=== PATIENT | male | born 1990 | race American Indian/Alaskan Native ===

== ENCOUNTER 2017-04-02 20:17 | Emergency (ER) | payer OTHER ==
--- NOTE | 2017-04-02 23:37 | XRay Report ---
FINAL REPORT PROCEDURE: XR SHOULDER 2+V LT TECHNIQUE: Left shoulder radiographs including AP views in internal and external rotation and abduction. CPT 18145 HISTORY: LEFT SHOULDER pain COMPARISON: No prior studies are available for comparison. FINDINGS: Fracture (s) and/or Dislocation(s): None . Joint space(s): Normal . Soft tissues: Normal . Bone mineralization: Normal . Foreign bodies: None . IMPRESSION: Normal Examination
--- NOTE | 2017-04-02 23:45 | XRay Report ---
FINAL REPORT PROCEDURE: XR SPINE LUMBOSACRAL 2-3V TECHNIQUE: Lumbar spine radiographs, including AP, lateral, and lumbosacral spot views. CPT 20333 HISTORY: LOWER BACK pain COMPARISON: No prior studies are available for comparison. FINDINGS: Alignment: Normal. Vertebral body heights/Disk spaces: Normal. Fracture(s): None. Facets: Normal. Bone mineralization: Normal. IMPRESSION: There are no fractures or malalignments. Disc spaces are normal. Soft tissues are unremarkable..
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
[2017-04-03] MEDS ORDERED: MOTRIN PO ONE (01:17)
[2017-04-03 02:12] VITALS: BP 120/74
== END 2017-04-03 02:12 | disposition home or self-care (01) ==
LOC: ED 20:17
DX: M25.512 Pain in left shoulder (principal); V49.49XA Driver injured in collision with other motor vehicles in traffic accident, initial encounter; Y93.89 Activity, other specified; Y92.89 Other specified places as the place of occurrence of the external cause; Y99.8 Other external cause status
CPT/HCPCS: 72100; 99283

== ENCOUNTER 2018-10-12 14:16 | Emergency (ER) | payer OTHER ==
--- NOTE | 2018-10-12 14:35 | Event Note ---
ED Screening Note Date of service: 10/12/18 Time: 14:33 ED Screening Note: 28 y o male presents with n/v/d x 4 days states ate some undercooked fish This initial assessment/diagnostic orders/clinical plan/treatment(s) is/are subject to change based on patients health status, clinical progression and re- assessment by fellow clinical providers in the ED. Further treatment and workup at subsequent clinical providers discretion. Patient/guardian urged not to elope from the ED as their condition may be serious if not clinically assessed and managed. Initial orders include:
[2018-10-12 15:10] LABS: Bacteria,Urine 1+ /HPF (Negative); Bilirubin,Urine NEG (Negative); Blood,Urine MOD (Negative); Color,Urine Yellow (Yellow); Mucus,Urine 3+ /HPF; Protein,Urine <15 mg/dL mg/dL (Negative); Sperm,Urine FEW /HPF (NP); Urobilinogen,Urine < 2.0 mg/dL (<2.0)
[2018-10-12 15:21] LABS: Basophils # (Auto) 0.1 K/mm3 (0.0-0.1); Basophils % (Auto) 2.4 % (0.0-1.8); Eosinophils # (Auto) 0.1 K/mm3 (0.0-0.4); Hematocrit 46.3 % (35.5-45.6); Hemoglobin 15.5 gm/dl (11.8-15.2); Lymphocytes # (Auto) 1.8 K/mm3 (1.2-5.4); Lymphocytes % (Auto) 39.1 % (13.4-35.0); Mean Corpuscular HGB Conc 33 % (32-34); Mean Corpuscular Volume 88 fl (84-94); Monocytes # (Auto) 0.6 K/mm3 (0.0-0.8); Monocytes % (Auto) 12.4 % (0.0-7.3); Platelet Count 227 K/mm3 (140-440); Red Blood Count 5.26 M/mm3 (3.65-5.03); Red Cell Distribution Width 13.1 % (13.2-15.2)
[2018-10-12 15:36] LABS: BUN/Creatinine Ratio 11; Blood Urea Nitrogen 12 mg/dL (9-20); Calcium 9.5 mg/dL (8.4-10.2); Hemolysis Index 5
--- NOTE | 2018-10-12 18:27 | Emergency Department Report ---
ED General Adult HPI - General Chief complaint: Abdominal Pain Stated complaint: STOMACH PAIN/VOMITING/WEAKNESS Time Seen by Provider: 10/12/18 14:33 Source: patient Mode of arrival: Ambulatory Limitations: No Limitations - History of Present Illness Initial comments: 28yo M patient states that upset stomach along with nausea and vomiting symptoms have been ongoing for 5 days. He further states that he has not tried any medications, but today he is able to drink Powerade without vomiting. -: days(s) (5 days) Quality: constant Consistency: constant Improves with: none Worsens with: none Associated Symptoms: nausea/vomiting - Related Data Previous Rx's Medication Instructions Recorded Last Taken Type Cetirizine HCl [Allergy Relief] 10 mg PO DAILY #14 tablet 05/11/14 Unknown Rx Fluticasone Propionate [Flonase] 100 mcg NS QDAY #1 spray.susp 05/11/14 Unknown Rx Ibuprofen [Motrin] 600 mg PO Q8H PRN #30 tablet 05/11/14 Unknown Rx traMADol [Ultram] 50 mg PO Q6HR PRN #14 tablet 05/11/14 Unknown Rx Ibuprofen [Motrin 600 MG tab] 600 mg PO Q8H PRN #15 tablet 04/03/17 Unknown Rx Ondansetron [Zofran Odt] 4 mg PO Q8HR #8 tab.rapdis 10/12/18 Unknown Rx Allergies Allergy/AdvReac Type Severity Reaction Status Date / Time bupropion HCl AdvReac Unknown Verified 10/12/18 14:23 [From Wellbutrin] ED Review of Systems ROS: Stated complaint: STOMACH PAIN/VOMITING/WEAKNESS Other details as noted in HPI Constitutional: denies: chills, fever Eyes: denies: eye pain, eye discharge, vision change ENT: denies: ear pain, throat pain Respiratory: denies: cough, shortness of breath, wheezing Cardiovascular: denies: chest pain, palpitations Endocrine: no symptoms reported Gastrointestinal: as per HPI, abdominal pain, nausea Genitourinary: denies: urgency, dysuria Musculoskeletal: as per HPI Skin: denies: rash, lesions Neurological: denies: headache, weakness, paresthesias Psychiatric: denies: anxiety, depression Hematological/Lymphatic: denies: easy bleeding, easy bruising ED Past Medical Hx - Past Medical History Previous Medical History?: No Additional medical history: yearly pneumonia. syncope from Wellbutrin - Surgical History Past Surgical History?: No - Social History Smoking Status: Former Smoker Substance Use Type: None - Medications Home Medications: Home Medications Medication Instructions Recorded Confirmed Last Taken Type Cetirizine HCl [Allergy Relief] 10 mg PO DAILY #14 tablet 05/11/14 Unknown Rx Fluticasone Propionate [Flonase] 100 mcg NS QDAY #1 spray.susp 05/11/14 Unknown Rx Ibuprofen [Motrin] 600 mg PO Q8H PRN #30 tablet 05/11/14 Unknown Rx traMADol [Ultram] 50 mg PO Q6HR PRN #14 tablet 05/11/14 Unknown Rx Ibuprofen [Motrin 600 MG tab] 600 mg PO Q8H PRN #15 tablet 04/03/17 Unknown Rx Ondansetron [Zofran Odt] 4 mg PO Q8HR #8 tab.rapdis 10/12/18 Unknown Rx ED Physical Exam - General Limitations: No Limitations ED Course Vital Signs 10/12/18 10/12/18 14:31 18:40 Temperature 98.4 F Pulse Rate 84 81 Respiratory 18 16 Rate Blood Pressure 124/72 Blood Pressure 121/70 [Left] O2 Sat by Pulse 100 100 Oximetry ED Medical Decision Making - Lab Data Result diagrams: 10/12/18 14:57 10/12/18 14:57 - Medical Decision Making 28yo M patient states that upset stomach along with nausea and vomiting symptoms have been ongoing for 5 days. He further states that he has not tried any medications, but today he is able to drink Powerade without vomiting. Pt was instructed to begin otc Pepto-bismol, implement bland diet, increase fluids and take Zofran as directed. Pt was further explained to f/u with PCP and see ER if symtoms worsen or new severe symptoms arise. Critical care attestation.: If time is entered above; I have spent that time in minutes in the direct care of this critically ill patient, excluding procedure time. ED Disposition Clinical Impression: Gastroenteritis Disposition: DC-01 TO HOME OR SELFCARE Is pt being admited?: No Does the pt Need Aspirin: No Condition: Stable Instructions: Gastroenteritis (ED), Acute Nausea and Vomiting (ED) Additional Instructions: Pt was instructed to begin otc Pepto-bismol, implement bland diet, increase fluids, and take Zofran as directed. Pt was further explained to f/u with PCP and see ER if symtoms worsen or new severe symptoms arise. Prescriptions: Ondansetron [Zofran Odt] 4 mg PO Q8HR #8 tab.danya Referrals: PRIMARY CARE, [Primary Care Provider] - 3-5 Days Time of Disposition: 18:31
[2018-10-12 18:42] VITALS: BP 121/70
== END 2018-10-12 18:40 | disposition home or self-care (01) ==
LOC: ED 14:16
DX: K52.9 Noninfective gastroenteritis and colitis, unspecified (principal); Z87.891 Personal history of nicotine dependence; Z88.8 Allergy status to other drugs, medicaments and biological substances
CPT/HCPCS: 36415; 80048; 81001; 83690; 85025